=== PATIENT | female | born 1965 | race Caucasian/White ===

== ENCOUNTER 2017-02-25 18:26 | Emergency (ER) | payer OTHER ==
[2017-02-25 18:45] VITALS: BP 158/73
[2017-02-25] MEDS ORDERED: Acetaminophen 325 MG Tab PO ONE (19:39)
--- NOTE | 2017-02-25 21:27 | EDM.PDOC ---
ED HPI GENERAL MEDICAL PROBLEM - General Chief Complaint: General Stated Complaint: DIZZY,CHILLS,HEADACHE Time Seen by Provider: 02/25/17 19:00 Source of Information: Reports: Patient History Limitations: Reports: No Limitations - History of Present Illness INITIAL COMMENTS - FREE TEXT/NARRATIVE: This patient complains of a headache chills she's dizzy feeling weak. She denies any shortness of breath just feels weak there is no cough no sore throat no chest pain or palpitations she is a little nauseated but no vomiting no diarrhea no burning on urination. Last summer she had similar symptoms and her DrReynaldo did some Lyme test those were negative but she was treated with doxycycline and she got better. She thinks she has recurrence of Lyme disease. Generalized Pain Score (Numeric/FACES): 7 - Related Data Allergies Allergy/AdvReac Type Severity Reaction Status Date / Time meperidine HCl [From Demerol] AdvReac Vomiting Verified 11/02/15 12:12 Home Meds: Home Meds Aspirin 81 mg PO DAILY 10/28/15 [History] Citalopram Hydrobromide [Celexa] 20 mg PO DAILY 10/28/15 [History] Metoprolol Succinate 75 mg PO DAILY 10/28/15 [History] Past Medical History Cardiovascular History: Reports: Other (See Below) Other Cardiovascular History: has pac Respiratory History: Reports: Bronchitis, Recurrent Genitourinary History: Reports: Renal Calculus, UTI, Recurrent [employer] History: Reports: Musculoskeletal History: Reports: Back Pain, Chronic Neurological History: Reports: Migraines Psychiatric History: Reports: Depression Endocrine/Metabolic History: Reports: Diabetes, Type II - Infectious Disease History Infectious Disease History: Reports: Chicken Pox - Past Surgical History Female Surgical History: Reports: Ureteral Stent Musculoskeletal Surgical History: Reports: Shoulder Surgery, Other (See Below) Dermatological Surgical History: Reports: Skin Biopsy, Other (See Below) Social & Family History - Tobacco Use Smoking Status *Q: Never Smoker Second Hand Smoke Exposure: No - Caffeine Use Caffeine Use: Reports: None - Recreational Drug Use Recreational Drug Use: No ED ROS GENERAL - Review of Systems Review Of Systems: ROS reveals no pertinent complaints other than HPI. ED EXAM, GENERAL - Physical Exam Exam: See Below Exam Limited By: No Limitations General Appearance: Alert, WD/WN, No Apparent Distress Eye Exam: Bilateral Eye: Normal Inspection Ears: Normal External Exam, Normal TMs Throat/Mouth: Normal Inspection, Normal Oropharynx Head: Atraumatic Neck: Normal Inspection Respiratory/Chest: No Respiratory Distress, Lungs Clear Cardiovascular: Regular Rate, Rhythm, No Murmur GI/Abdominal: Soft, Non-Tender Back Exam: Normal Inspection Extremities: Normal Inspection Neurological: Alert, Oriented Psychiatric: Normal Affect Skin Exam: Warm, Dry, No Rash Course - Vital Signs Last Recorded V/S: Last Vital Signs Temp 38.6 C H 02/25/17 21:22 Pulse 95 02/25/17 18:43 Resp 16 02/25/17 18:43 BP 158/73 H 02/25/17 18:43 Pulse Ox 98 02/25/17 18:43 - Orders/Labs/Meds Orders: Active Orders 24 hr Category Date Time Status Chest 2V [CR] Urgent Exams 02/25/17 19:33 Taken CULTURE BLOOD [BC] Urgent Lab 02/25/17 19:40 Received CULTURE BLOOD [BC] Urgent Lab 02/25/17 19:50 Received CULTURE STREP A CONFIRMATION [RM] Stat Lab 02/25/17 19:36 Results STREP SCRN A RAPID W CULT CONF [RM] Stat Lab 02/25/17 19:36 Results Blood Culture x2 Reflex Set [OM.PC] Urgent Oth 02/25/17 19:33 Ordered Labs: Laboratory Tests 02/25/17 02/25/17 02/25/17 Range/Units 19:40 19:40 19:47 WBC 3.7 L (4.5-11.0) K/uL RBC 4.62 (3.30-5.50) M/uL Hgb 9.9 L (12.0-15.0) g/dL Hct 32.8 L (36.0-48.0) % MCV 71 L (80-98) fL MCH 21 L (27-31) pg MCHC 30 L (32-36) % Plt Count 323 (150-400) K/uL Neut % (Auto) 62 (36-66) % Lymph % (Auto) 27 (24-44) % [place] % (Auto) 10 H (2-6) % Eos % (Auto) 1 L (2-4) % Baso % (Auto) 1 (0-1) % Sodium 142 (140-148) mmol/L Potassium 3.8 (3.6-5.2) mmol/L Chloride 107 (100-108) mmol/L Carbon Dioxide 26 (21-32) mmol/L Anion Gap 8.6 (5.0-14.0) mmol/L BUN 13 (7-18) mg/dL Creatinine 0.8 (0.6-1.0) mg/dL Est Cr Clr Drug Dosing 68.82 mL/min Estimated GFR (MDRD) > 60 (>60) Glucose 174 H (74-106) mg/dL Calcium 8.4 L (8.5-10.1) mg/dL Iron (50-170) ug/dL TIBC (250-450) ug/dl % Saturation (20-55) % Ferritin (8-388) ng/ml Total Bilirubin 0.2 (0.2-1.0) mg/dL AST 32 (15-37) U/L ALT 41 (12-78) U/L Alkaline Phosphatase 78 (46-116) U/L Total Protein 6.9 (6.4-8.2) g/dL Albumin 3.2 L (3.4-5.0) g/dL Globulin 3.7 H (2.3-3.5) g/dL Albumin/Globulin Ratio 0.9 L (1.2-2.2) Urine Color Yellow Urine Appearance Clear Urine pH 5.0 (4.5-8.0) Ur Specific [place] 1.020 (1.008-1.030) Urine Protein Negative (NEGATIVE) mg/dL Urine Glucose (UA) Normal (NEGATIVE) mg/dL Urine Ketones Negative (NEGATIVE) mg/dL Urine Occult Blood Moderate (NEGATIVE) Urine Nitrite Negative (NEGATIVE) Urine Bilirubin Negative (NEGATIVE) Urine Urobilinogen Normal (NORMAL) mg/dL Ur Leukocyte Esterase Negative (NEGATIVE) Urine RBC 5-10 H (0-5) Urine WBC 0-5 (0-5) Ur Epithelial Cells Moderate Amorphous Sediment Moderate Urine Bacteria Few Urine Mucus Moderate Urine Other See note 02/25/17 02/25/17 Range/Units 21:19 21:21 WBC (4.5-11.0) K/uL RBC (3.30-5.50) M/uL Hgb (12.0-15.0) g/dL Hct (36.0-48.0) % MCV (80-98) fL MCH (27-31) pg MCHC (32-36) % Plt Count (150-400) K/uL Neut % (Auto) (36-66) % Lymph % (Auto) (24-44) % [place] % (Auto) (2-6) % Eos % (Auto) (2-4) % Baso % (Auto) (0-1) % Sodium (140-148) mmol/L Potassium (3.6-5.2) mmol/L Chloride (100-108) mmol/L Carbon Dioxide (21-32) mmol/L Anion Gap (5.0-14.0) mmol/L BUN (7-18) mg/dL Creatinine (0.6-1.0) mg/dL Est Cr Clr Drug Dosing mL/min Estimated GFR (MDRD) (>60) Glucose (74-106) mg/dL Calcium (8.5-10.1) mg/dL Iron 28 L (50-170) ug/dL TIBC 372 (250-450) ug/dl % Saturation 8 L (20-55) % Ferritin 21 (8-388) ng/ml Total Bilirubin (0.2-1.0) mg/dL AST (15-37) U/L ALT (12-78) U/L Alkaline Phosphatase (46-116) U/L Total Protein (6.4-8.2) g/dL Albumin (3.4-5.0) g/dL Globulin (2.3-3.5) g/dL Albumin/Globulin Ratio (1.2-2.2) Urine Color Urine Appearance Urine pH (4.5-8.0) Ur Specific [place] (1.008-1.030) Urine Protein (NEGATIVE) mg/dL Urine Glucose (UA) (NEGATIVE) mg/dL Urine Ketones (NEGATIVE) mg/dL Urine Occult Blood (NEGATIVE) Urine Nitrite (NEGATIVE) Urine Bilirubin (NEGATIVE) Urine Urobilinogen (NORMAL) mg/dL Ur Leukocyte Esterase (NEGATIVE) Urine RBC (0-5) Urine WBC (0-5) Ur Epithelial Cells Amorphous Sediment Urine Bacteria Urine Mucus Urine Other Meds: Medications Discontinued Medications Generic Name Dose Route Start Last Admin Trade Name Freq PRN Reason Stop Dose Admin Acetaminophen 650 mg 02/25/17 19:39 02/25/17 19:56 Tylenol PO 02/25/17 19:40 650 mg NOW ONE Administration - Re-Assessments/Exams Free Text/Narrative Re-Assessment/Exam: 02/26/17 07:08 Chest x-ray showed normal heart size normal lung markings. Labs were remarkable for an anemia of microcytic anemia suggesting iron deficiency anemia. This was discussed with the patient. I also sent off iron TIBC and ferritin. Patient will follow this up with her doctor. Her urinalysis showed a few RBCs and granular casts. Patient still has her uterus but has irregular menses. So it's not clear just where the blood came from and she will also need to discuss this with her doctor. Lyme IgG and IgM were sent that will take several days. In the meantime I'll put her on doxycycline 100 twice a day for 10 days Departure - Departure Time of Disposition: 21:23 Disposition: Home, Self-Care 01 Condition: Fair Clinical Impression: Fever - Discharge Information Instructions: Fever, Adult, [id number] Referrals: Juancho Ellison MD [Primary Care Provider] - Forms: ED Department Discharge Additional Instructions: No definite cause of the fever has been found. Go ahead and take the doxycycline 100 mg twice daily for 10 days. If you actually have Lyme disease you will need to take the medication longer. Lyme tests were sent out on you but will not be back for several days. He will need to follow-up with your doctor for this. You appear to be anemic and most likely this is an iron deficiency anemia. This is very common in women who have menstrual periods but it could also be a sign of chronic blood loss from other areas. There was blood in the urine which could be from the uterus but your doctor will have to check out and make sure that it is not from some chronic urinary blood loss. Tell your DrReynaldo that iron tests were sent and will need to be followed up. If you feel like the fever is getting worse over the next couple days then be sure to see your doctor sooner or return to the ER - My Orders Last 24 Hours: My Active Orders 02/25/17 19:33 Chest 2V [CR] Urgent Blood Culture x2 Reflex Set [OM.PC] Urgent 02/25/17 19:36 CULTURE STREP A CONFIRMATION [RM] Stat STREP SCRN A RAPID W CULT CONF [RM] Stat 02/25/17 19:40 CULTURE BLOOD [BC] Urgent 02/25/17 19:50 CULTURE BLOOD [BC] Urgent - Assessment/Plan Last 24 Hours: My Active Orders 02/25/17 19:33 Chest 2V [CR] Urgent Blood Culture x2 Reflex Set [OM.PC] Urgent 02/25/17 19:36 CULTURE STREP A CONFIRMATION [RM] Stat STREP SCRN A RAPID W CULT CONF [RM] Stat 02/25/17 19:40 CULTURE BLOOD [BC] Urgent 02/25/17 19:50 CULTURE BLOOD [BC] Urgent
--- NOTE | 2017-02-26 09:01 | CR ---
Chest 2V HISTORY: pain COMPARISON: None FINDINGS: Lungs appear clear and normally aerated. Cardiomediastinal silhouette is within normal limits. No va scular redistribution or pleural fluid can be seen. Bony structures and soft tissues are unremarkabl e. IMPRESSION: No acute chest abnormality identified.
== END 2017-02-25 21:37 | disposition home or self-care (01) ==
LOC: JP.ED 18:26
DX: R50.9 Fever, unspecified (principal); G43.909 Migraine, unspecified, not intractable, without status migrainosus; E11.9 Type 2 diabetes mellitus without complications; F32.9 Major depressive disorder, single episode, unspecified; Z79.82 Long term (current) use of aspirin; Z79.899 Other long term (current) drug therapy; Z98.890 Other specified postprocedural states
CPT/HCPCS: 36415; 71020; 80053; 81001; 82728; 83550; 85025; 87040; 87081; 87430; 99284; A9270

== ENCOUNTER 2024-03-14 12:27 | Emergency (ER) | payer OTHER ==
[2024-03-14 15:21] VITALS: BP 137/78; PULSE 74
== END 2024-03-14 15:15 | disposition home or self-care (01) ==
LOC: JP.ED 12:27
DX: S83.242A Other tear of medial meniscus, current injury, left knee, initial encounter (principal); E11.9 Type 2 diabetes mellitus without complications; Z86.16 Personal history of COVID-19; Z79.899 Other long term (current) drug therapy; Z88.5 Allergy status to narcotic agent; W19.XXXA Unspecified fall, initial encounter
CPT/HCPCS: 73562-26-LT; 73562-LT; 99283

== ENCOUNTER 2025-04-27 17:36 | Emergency (ER) | payer OTHER ==
[2025-04-27 18:14] LABS: APPEARANCE,URINE SLIGHTLY CLOUDY (CLEAR); GLUCOSE,URINE NEGATIVE (NEGATIVE); OCCULT BLOOD,URINE LARGE (NEGATIVE)
[2025-04-27 18:24] LABS: SQUAMOUS EPITHELIAL CELLS,UR FEW /HPF; UROTHELIAL CELLS,URINE NOT SEEN /HPF
[2025-04-27] MEDS: Ketorolac 30 MG/ML SDV IM ONE (19:37)
[2025-04-27 20:49] VITALS: BP 158/82; PULSE 72
== END 2025-04-27 20:48 | disposition home or self-care (01) ==
LOC: JP.ED 17:36
DX: N13.2 Hydronephrosis with renal and ureteral calculous obstruction (principal); E11.9 Type 2 diabetes mellitus without complications; Z88.8 Allergy status to other drugs, medicaments and biological substances; Z79.899 Other long term (current) drug therapy; Z79.84 Long term (current) use of oral hypoglycemic drugs; Z79.85 Long-term (current) use of injectable non-insulin antidiabetic drugs; Z86.16 Personal history of COVID-19
CPT/HCPCS: 74176; 81001; 96372; 99284; J1885

== ENCOUNTER 2025-07-02 17:22 | Emergency (ER) | payer OTHER ==
[2025-07-02 18:24] LABS: BASOPHILS ABSOLUTE AUTO 0.04 K/uL (0.00-0.10); BASOPHILS PERCENT AUTO 0.4 % (0.1-1.3); EOSINOPHILS ABSOLUTE AUTO 0.19 K/uL (0.00-0.40); EOSINOPHILS PERCENT AUTO 1.7 % (0.0-5.4); IMMATURE GRAN PERCENT AUTO 0.2 % (0.0-0.7); LYMPHOCYTES ABSOLUTE AUTO 2.32 K/uL (0.8-3.3); LYMPHOCYTES PERCENT AUTO 21.2 % (11.4-47.7); MONOCYTES ABSOLUTE AUTO 0.76 K/uL (0.20-0.90); MONOCYTES PERCENT AUTO 6.9 % (3.3-12.6); NEUTROPHILS ABSOLUTE AUTO 7.63 K/uL (1.0-7.6); NEUTROPHILS PERCENT AUTO 69.6 % (40.0-78.1); PLATELET COUNT,PLT 301 K/uL (130-375); RED BLOOD CELL COUNT 4.36 M/uL (3.77-5.24); WHITE BLOOD CELL COUNT,WBC 11.0 K/uL (3.2-11.0)
[2025-07-02 18:25] LABS: IMMATURE GRAN ABSOLUTE AUTO 0.02 K/uL (0.00-0.23)
[2025-07-02 18:42] VITALS: BP 158/78; PULSE 68
[2025-07-02 18:45] LABS: A/G RATIO 1.0 (1.2-2.2); ALANINE AMINOTRANSFERASE,ALT 48 U/L (12-78); ASPARTATE AMNIOTRANSFERASE,AST 23 U/L (15-37); BILIRUBIN TOTAL 0.3 mg/dL (0.2-1.0); BLOOD UREA NITROGEN,BUN 16 mg/dL (7-18); CARBON DIOXIDE,CO2 32 mmol/L (21-32); CHLORIDE,CL 105 mmol/L (100-108); CREATININE 0.8 mg/dL (0.6-1.0); EST CRCL DRUG DOSING (CG) 62.63 mL/min; ESTIMATED GFR 85 mL/min (>60); GLUCOSE RANDOM 168 mg/dL (74-106); POTASSIUM,K 3.8 mmol/L (3.6-5.2); PROTEIN TOTAL,TP 7.1 g/dL (6.4-8.2); SODIUM,NA 142 mmol/L (140-148)
[2025-07-02] MEDS ORDERED: Naloxone 0.4 MG/ML SDV IVPUSH PRN (19:39)
[2025-07-02] MEDS: fentaNYL 100 MCG/2 ML SDV NASBOTH ONE (19:48)
== END 2025-07-02 20:28 | disposition home or self-care (01) ==
LOC: JP.ED 17:22
DX: L03.115 Cellulitis of right lower limb (principal); E11.9 Type 2 diabetes mellitus without complications; Z88.8 Allergy status to other drugs, medicaments and biological substances; Z79.899 Other long term (current) drug therapy
CPT/HCPCS: 36415; 80053; 85025; 85379; 93971; 99284; A9270; J3010; 99283

== ENCOUNTER 2025-07-05 14:53 | Emergency (ER) | payer OTHER ==
[2025-07-05 15:36] VITALS: BP 151/66; PULSE 86
[2025-07-05 16:53] LABS: BASOPHILS ABSOLUTE AUTO 0.06 K/uL (0.00-0.10); BASOPHILS PERCENT AUTO 0.5 % (0.1-1.3); EOSINOPHILS ABSOLUTE AUTO 0.12 K/uL (0.00-0.40); EOSINOPHILS PERCENT AUTO 1.0 % (0.0-5.4); IMMATURE GRAN ABSOLUTE AUTO 0.05 K/uL (0.00-0.23); IMMATURE GRAN PERCENT AUTO 0.4 % (0.0-0.7); LYMPHOCYTES ABSOLUTE AUTO 2.62 K/uL (0.8-3.3); LYMPHOCYTES PERCENT AUTO 22.3 % (11.4-47.7); MONOCYTES ABSOLUTE AUTO 1.11 K/uL (0.20-0.90); MONOCYTES PERCENT AUTO 9.4 % (3.3-12.6); NEUTROPHILS ABSOLUTE AUTO 7.81 K/uL (1.0-7.6); NEUTROPHILS PERCENT AUTO 66.4 % (40.0-78.1); PLATELET COUNT,PLT 326 K/uL (130-375); RED BLOOD CELL COUNT 4.11 M/uL (3.77-5.24); WHITE BLOOD CELL COUNT,WBC 11.8 K/uL (3.2-11.0)
[2025-07-05 17:02] LABS: BLOOD UREA NITROGEN,BUN 14.0 mg/dL (7-18); CARBON DIOXIDE,CO2 31.0 mmol/L (21-32); CHLORIDE,CL 103.0 mmol/L (100-108); CREATININE 0.9 mg/dL (0.6-1.0); EST CRCL DRUG DOSING (CG) 58.12 mL/min; ESTIMATED GFR 74.0 mL/min (>60); GLUCOSE RANDOM 83.0 mg/dL (74-106); POTASSIUM,K 3.9 mmol/L (3.6-5.2); SODIUM,NA 139.0 mmol/L (140-148)
== END 2025-07-05 18:07 | disposition home or self-care (01) ==
LOC: JP.ED 14:53
DX: L03.115 Cellulitis of right lower limb (principal); I10 Essential (primary) hypertension; E11.9 Type 2 diabetes mellitus without complications; E78.00 Pure hypercholesterolemia, unspecified; Z88.8 Allergy status to other drugs, medicaments and biological substances; Z79.899 Other long term (current) drug therapy
CPT/HCPCS: 36415; 80048; 85025; 87040; 99283